=== PATIENT | female | born 2000 | race Two or more races ===

== ENCOUNTER 2022-06-02 19:11 | Emergency (ER) | payer MEDICAID, OTHER ==
[~2022-06-02] VITALS: Ht 157.5 cm; Wt 54.5 kg
[2022-06-02 19:29] VITALS: BP 109/72
[2022-06-02 22:43] LABS: Urine Bacteria NONE SEEN /hpf (None Seen); Urine Blood Negative /uL (Negative); Urine Mucus FEW (None Seen); Urine Specific Gravity 1.026 (1.001-1.035); Urine WBC 5 /hpf (0 - 5)
[2022-06-03] MEDS ORDERED: IBUP600T27 PO (15:52)
[2022-06-03] MEDS ORDERED: METH500T22 PO (15:52)
== END 2022-06-03 01:25 | disposition left against medical advice (07) ==
LOC: ER 19:11
DX: M54.50 Low back pain, unspecified (principal); Z53.21 Procedure and treatment not carried out due to patient leaving prior to being seen by health care provider; V89.2XXA Person injured in unspecified motor-vehicle accident, traffic, initial encounter; Y93.89 Activity, other specified; Y92.410 Unspecified street and highway as the place of occurrence of the external cause; Y99.8 Other external cause status
CPT/HCPCS: 81001

== ENCOUNTER 2022-06-03 14:22 | Emergency (ER) | payer MEDICAID, OTHER ==
[~2022-06-03] VITALS: Ht 157.5 cm; Wt 54.4 kg
[2022-06-03] MEDS ORDERED: METH500T22 PO (15:52)
[2022-06-03] MEDS ORDERED: IBUP600T27 PO (15:52)
[2022-06-03 15:58] VITALS: BP 120/77
[2022-06-03] MEDS ORDERED: IBUPROFEN 600 MG TAB PO ONE (16:00)
== END 2022-06-03 16:09 | disposition home or self-care (01) ==
LOC: ER 14:22
DX: S29.012A Strain of muscle and tendon of back wall of thorax, initial encounter (principal); Z79.1 Long term (current) use of non-steroidal anti-inflammatories (NSAID); Z79.899 Other long term (current) drug therapy; V43.52XA Car driver injured in collision with other type car in traffic accident, initial encounter; Y93.89 Activity, other specified; Y92.89 Other specified places as the place of occurrence of the external cause; Y99.8 Other external cause status
CPT/HCPCS: 72070

== ENCOUNTER 2023-06-21 10:37 | Emergency (ER) | payer MEDICAID, OTHER ==
[~2023-06-21] VITALS: Ht 160 cm; Wt 50.4 kg
[~2023-06-21 10:37] MED LIST: IBUP-1454 PO; METH-1181 PO
[2023-06-21 12:43] VITALS: BP 100/62; PULSE 75; RESP 14; TEMP 98.7; O2SAT 96
[2023-06-21] MEDS ORDERED: IBUPROFEN 800 MG TAB PO ONE (13:00)
== END 2023-06-21 13:44 | disposition home or self-care (01) ==
LOC: ER 10:37
DX: M54.50 Low back pain, unspecified (principal); R55 Syncope and collapse; Z79.1 Long term (current) use of non-steroidal anti-inflammatories (NSAID); Z79.899 Other long term (current) drug therapy
CPT/HCPCS: 72220; 81025; 93005